=== PATIENT | female | born 2000 | race Two or more races ===

== ENCOUNTER 2025-02-16 02:17 | Inpatient (IN) | payer OTHER ==
[~2025-02-16] VITALS: Ht 170.2 cm; Wt 86.0 kg
[2025-02-16 02:55] VITALS: PULSE 83; RESP 20; O2SAT 99
[2025-02-16 03:25] LABS: Hematocrit 25.7 % (36.0-46.0); Hemoglobin 8.2 g/dL (12.2-16.2)
--- NOTE | 2025-02-16 03:36 | ED.PDOC ---
History of Present Illness HPI Comments 24 y/o F is BIBA for c/c of GI bleed. Patient is a transfer from [facility] for mzyrnm-ihsdb-ac-care admission after being found anemic with a Hgb of 5.8 and a Hct of 20.3 when evaluated for 1.5-2x week history of shortness of breath, lightheadedness, weakness, and syncope. She was given 2 units of PRBC's at other hospital facility prior to arrival. Patient states on being diagnosed with hemorrhoids during a previous ED visit in May 2024 but never following up with outpatient care for treatment and has been bleeding whenever using the bathroom. At time of assessment, patient reports initial symptoms for other hospital visit resolving following transfusions. Denies any further acute symptoms. REVIEW OF SYSTEMS: General: No fever, no chills, or fatigue HEENT: No sore throat, no earache, no congestion, no neck pain. Cardiac: No chest pain. No palpitations. Lungs: No shortness of breath, no cough. GI: Rectal bleeding. No nausea, no vomiting, no diarrhea, no constipation, no abdominal pain : No dysuria, frequency, or urgency. No hematuria. Musculoskeletal: No joint pain , no joint swelling, no extremity edema. Skin: No rash, no itching. Neuro: No headache, no dizziness, no weakness PHYSICAL EXAM: General: Awake, alert and oriented. No acute distress. Skin: Skin in warm, dry and intact without rashes or lesions. HEENT: The head is normocephalic and atraumatic. Conjunctivae are clear without exudates or hemorrhage. Sclera is non-icteric. Neck: Normal range of motion. No JVD. Cardiac: Regular rate Respiratory: No signs of respiratory distress. No Stridor. Extremities: Upper and lower extremities are atraumatic in appearance without deformity. Neurological: The patient is awake, alert and oriented to person, place, and time with normal speech. Speech is clear. There is no facial asymmetry. Psychiatric: Appropriate mood and affect. Good judgement and insight. Chief Complaint: GI Bleed Time Seen by MD: 03:00 Reviewed Notes: Nurses Notes, Medications, Allergies Allergies: Coded Allergies: Sulfamethoxazole w/Trimethoprim (Verified Allergy, Unknown, 02/16/25) Information Source: Patient, Transfer Record, Emergency Med Personnel Mode of Arrival: EMS Severity: Moderate Timing: Days Duration: Since onset Prehospital treatment: None Past Medical History Past Medical History (Other): Hemorrhoids Surgical History: Denies all surgeries [employer] History: Ovarian Cysts (PCOS) Was a procedure done? Was a procedure done?: No EKG EKG : Pulse Rate (adult): 75 Cardiac Rhythm: NSR Block: None Hypertrophy: None ST: Normal Comments No ST changes, no STEMI Differential Dx Considerations may include: Differential diagnoses considered includebut arenot limited to acute Bronchitis, Asthma, COPD, Pneumothorax, PE, CHF, Pulmonary HTN, Anemia, CO Poisoning, Methemoglobinemia, Hyperventilation, Metabolic Acidosis, Pulmonary Edema, Pneumonia, ACS, Pericardial Tamponade, Anxiety, anemia, lower GI bleed, hemorrhoids, other X-Ray, Labs, Meds, VS Vital Signs Date Time Temp Pulse Resp B/P (MAP) Pulse Ox O2 Delivery O2 Flow Rate FiO2 02/16/25 04:00 86 22 113/70 (84) 100 02/16/25 04:00 67 02/16/25 03:36 75 02/16/25 02:55 83 20 99 Room Air* 0 21 02/16/25 02:54 98.1 83 20 122/80 (94) 99 98.1 02/16/25 02:44 97.9 84 18 125/66 98 97.9 02/16/25 02:21 75 Lab Test 02/16/25 02:54 Range/Units Hemoglobin 8.2 L 12.2-16.2 g/dL Hematocrit 25.7 L 36.0-46.0 % Prothrombin Time 10.7 9.3-11.8 sec Prothrombin Time INR 1.01 0.9-1.15 Activated Partial Thromboplast Time 23.7 L 24.5-34.5 SEC Sodium Level 142 136-145 mmol/L Potassium Level 3.4 L 3.5-5.1 mmol/L Chloride Level 105 98-107 mmol/L Carbon Dioxide Level 25 20-31 mmol/L Anion Gap 12 5-15 Blood Urea Nitrogen 13 9-23 mg/dL Creatinine 0.67 0.550-1.02 mg/dL Glomerular Filtration Rate Calc 125 >90 mL/min BUN/Creatinine Ratio 19.4 10.0-20.0 Serum Glucose 101 74-106 mg/dL Calcium Level 9.3 8.7-10.4 mg/dL Total Bilirubin 0.6 0.2-1.0 mg/dL Aspartate Amino Transferase (AST) 16 13-40 U/L Alanine Aminotransferase (ALT) 18 7-40 U/L Alkaline Phosphatase 75 46-116 U/L Total Protein 7.2 5.7-8.2 g/dL Albumin 4.4 3.2-4.8 g/dL Time of 1ST Reevaluation: 03:30 Reevaluation 1ST: Unchanged Patient Education/Counseling: Other (Patient is a minor) Family Education/Counseling: Treatment, Need For Follow Up SEPSIS Sepsis Screen Date sepsis recognized/suspect: Feb 16, 2025 Time Sepsis recognized/suspect: 249 Recent Procedure: No On Antibiotic Therapy: No Respiratory Rate >20: No Heart Rate >90: No Temp<36 C (96.8 F) or >38.3 C: No SBP <90 or MAP <65 mmHG: No New Acute Mental Status Change: No Is the patient on CPAP, BIPAP,: No Physician Orders Dogger (02/16/25 ) Vital Signs Date Time Temp Pulse Resp B/P (MAP) Pulse Ox O2 Delivery O2 Flow Rate FiO2 02/16/25 04:00 86 22 113/70 (84) 100 02/16/25 04:00 67 02/16/25 03:36 75 02/16/25 02:55 83 20 99 Room Air* 0 21 02/16/25 02:54 98.1 83 20 122/80 (94) 99 98.1 02/16/25 02:44 97.9 84 18 125/66 98 97.9 02/16/25 02:21 75 Departure 1 Departure Time of Disposition: 03:45 Impression: Primary Impression: BRBPR (bright red blood per rectum) Additional Impression: Anemia Disposition: ADMITTED INPATIENT Condition: Stable Comments MDM: Patient admitted to hospitalist service for further treatment, evaluation and monitoring. Extensive evaluation was performed in attempt to identify or rule out: (See differential diagnosis section) The following tests were ordered, and results were reviewed by me and discussed with patient: (See diagnostic results section) The following test were independently interpreted by me: N/A I reviewed and agreed with the following test results read by other providers: N/A I reviewed the following notes from the pt's past medical encounters: N/A Additional information was gathered from interviewing the following independent historians: EMS personnel, medical transfer record. Discussion of management or test interpretation with external physician/other qualified health student career development specialist: N/A Decision regarding hospitalization or escalation of hospital level of care: Risk and benefits of admission for further treatment of patient's condition was considered. Due to patient's current clinical condition, high risk of decline and poor outcome if discharged and need for further inpatient management and monitoring, patient will be admitted to the hospital. Critical Care Note Critical Care Time?: No Stability Stability form required: No Heart Score Heart Score: Heart Score Response (Comments) Value History N/A 0 EKG N/A 0 Age N/A 0 Risk Factors N/A 0 Troponin N/A 0 Total 0 I personally scribed for JAS SYKES MD ([email or web address]) on 02/16/25 at 03:36. Electronically submitted by Agapito Manriquez ([email or web address]). JAS SYKES MD Feb 16, 2025 03:36
--- NOTE | 2025-02-16 04:11 | ECG ---
[facility] Test Date: 2025-02-16 Test Time: 02:21:07 Pat Name: KIANA TODD Department: [facility] ED Patient ID: [id number] Room: Gender: F Director Of Trauma: vitaliy : 2000 Requested By: JAS SYKES Order Number: [id number] Reading MD: Measurements Intervals [place] Rate: 75 P: 36 KS: 180 QRS: 38 QRSD: 74 T: 53 QT: 352 QTc: 394 Interpretive Statements Sinus rhythm Low voltage, precordial leads ST elev, probable normal early repol pattern Please click the below link to view image of tracing.
--- NOTE | 2025-02-16 04:26 | DVHHP2 ---
History of Present Illness Reason for Visit: Rectal bleed History of Present Illness 24-year-old female presents for evaluation of rectal bleeding. Patient being transferred from [facility] for evaluation of rectal bleeding. Patient endorses a two month history of rectal bleeding. She states over the past one- week she has become short of breath and unable to do simple tasks without becoming severely winded. Also reports occasional palpitations. Patient was noted to have a hemoglobin of 5.8 and transfuse 2 units of packed red cells prior to transfer. Past Medical History Hemorrhoids Past Surgical History Denies Family History Noncontributory Smoke: No ALCOHOL: none Drugs: None Review of Systems Review of Systems Review of systems are currently negative otherwise addressed in HPI. Allergies: Coded Allergies: Sulfamethoxazole w/Trimethoprim (Verified Allergy, Unknown, 02/16/25) Exam Vital Signs Vital Signs Date Time Temp Pulse Resp B/P (MAP) Pulse Ox O2 Delivery O2 Flow Rate FiO2 02/16/25 04:00 67 02/16/25 02:55 20 99 Room Air* 0 21 02/16/25 02:54 98.1 122/80 (94) 98.1 Exam Gen: 24-year-old female in mild Skin: Warm, dry, normal color and texture, no rash. HEENT: Normocephalic atraumatic, mucous membranes moist and pink. Neck: Cervical and supraclavicular nodes normal without enlargement, trachea is midline, thyroid gland is normal without masses. Pulmonary: Clear to auscultation and percussion bilaterally. Cardiac: Regular rate and rhythm. No murmur Abdomen: Soft, nontender, nondistended, bowel sounds present all 4 quadrants, no guarding, no rigidity, no organomegaly. Extremities: No cyanosis, clubbing, no edema Neuro: Cranial nerves II through XII grossly intact, normal affect and speech, no focal motor deficits. Labs/Xrays Labs Test 02/16/25 02:54 Range/Units Hemoglobin 8.2 L 12.2-16.2 g/dL Hematocrit 25.7 L 36.0-46.0 % SEPSIS Sepsis Screen Date sepsis recognized/suspect: Feb 16, 2025 Time Sepsis recognized/suspect: 249 Recent Procedure: No On Antibiotic Therapy: No Respiratory Rate >20: No Heart Rate >90: No Temp<36 C (96.8 F) or >38.3 C: No SBP <90 or MAP <65 mmHG: No New Acute Mental Status Change: No Is the patient on CPAP, BIPAP,: No Physician Orders Stool Occult Blood (02/16/25 02:46) Ethanol Maintenance Mechanic (02/16/25 ) Complete Blood Count (02/16/25 04:20) Comprehensive Metabolic Panel (02/16/25 04:20) PTPTT (02/16/25 04:20) * Gi Dvh Lock Corner Machine Operator (02/16/25 04:20) Pantoprazole (Protonix) (02/16/25 10:00) NS (02/16/25 04:30) Vital Signs Date Time Temp Pulse Resp B/P (MAP) Pulse Ox O2 Delivery O2 Flow Rate FiO2 02/16/25 04:00 67 02/16/25 03:36 75 02/16/25 02:55 83 20 99 Room Air* 0 21 02/16/25 02:54 98.1 83 20 122/80 (94) 99 98.1 02/16/25 02:44 97.9 84 18 125/66 98 97.9 02/16/25 02:21 75 Assessment/Plan Assessment/Plan Assessment Rectal bleeding History of hemorrhoids Symptomatic anemia Plan Admit the patient to [facility] to the hospitalist GI consultation NPO Maintenance IV fluids Protonix Continue treatment per orders. Plan discussed with: Patient My Orders Orders - JAMEEL MARTINEZ Procedure Category Date Status Time Complete Blood Count LAB 02/16/25 Verified 04:20 Comprehensive LAB 02/16/25 Verified Metabolic Panel 04:20 PTPTT LAB 02/16/25 Verified 04:20 * Gi Dvh Lock Corner Machine Operator CONS 02/16/25 Verified 04:20 Pantoprazole PHA 02/16/25 Verified (Protonix) 10:00 NS PHA 02/16/25 Verified 04:30 Date of Service: Feb 16, 2025 Billing Provider: JAMEEL MARTINEZ Common Visit Codes: [id number] INP/OBS CARE (HIGH) JAMEEL MARTINEZ Feb 16, 2025 04:26
[2025-02-16] MEDS ORDERED: ONDANSETRON HCL 4 MG/2 ML VIAL IV PRN (04:30)
[2025-02-16] MEDS: SODIUM CHLORIDE 0.9% 1,000 ML IV ONE (04:43)
[2025-02-16 04:50] LABS: Alanine Aminotransferase 18 U/L (7-40); Albumin 4.4 g/dL (3.2-4.8); Alkaline Phosphatase 75 U/L (46-116); Anion Gap 12 (5-15); BUN/Creatinine Ratio 19.4 (10.0-20.0); Blood Urea Nitrogen 13 mg/dL (9-23); Calcium 9.3 mg/dL (8.7-10.4); Carbon Dioxide 25 mmol/L (20-31); Chloride 105 mmol/L (98-107); Glucose 101 mg/dL (74-106); Sodium 142 mmol/L (136-145); Total Protein 7.2 g/dL (5.7-8.2)
[2025-02-16 04:51] LABS: Bilirubin, Total 0.6 mg/dL (0.2-1.0)
[2025-02-16 04:55] LABS: Potassium 3.4 mmol/L (3.5-5.1)
[2025-02-16 05:01] LABS: INR 1.01 (0.9-1.15); Partial Thromboplastin Time 23.7 SEC (24.5-34.5); Prothrombin Time 10.7 sec (9.3-11.8)
[2025-02-16 05:09] LABS: Hematocrit 26.0 % (36.0-46.0); Hemoglobin 8.2 g/dL (12.2-16.2); Mean Corpuscular Hemoglobin 22.8 pg (28.0-32.0); Mean Corpuscular Volume 72.4 fL (80.0-100.0); Nucleated Red Blood Cells % 0.0 %
[2025-02-16 08:00] VITALS: TEMP 98
[2025-02-16] MEDS: PANTOPRAZOLE 40 MG/10 ML VIAL INJ IV SCH (11:00)
--- NOTE | 2025-02-16 12:19 | DVHDS2 ---
Discharge Summary Date of Admission Feb 16, 2025 at 04:20 Date of Discharge: Feb 16, 2025 Labs/Diagnostic Data: Laboratory Results Test 02/16/25 04:41 02/16/25 02:54 White Blood Count 9.9 10^3/uL (4.4-10.8) Red Blood Count 3.59 10^6/uL (4.0-5.20) Hemoglobin 8.2 g/dL (12.2-16.2) Hematocrit 26.0 % (36.0-46.0) Mean Corpuscular Volume 72.4 fL (80.0-100.0) Mean Corpuscular Hemoglobin 22.8 pg (28.0-32.0) Mean Corpuscular Hemoglobin Concent 31.5 g/dL (32.0-36.0) Red Cell Distribution Width 19.0 % (11.8-14.3) Platelet Count 587 10^3/uL (140-450) Mean Platelet Volume 7.1 fL (6.9-10.8) Neutrophils (%) (Auto) 55.7 % (37.0-80.0) Lymphocytes (%) (Auto) 30.8 % (10.0-50.0) Monocytes (%) (Auto) 11.4 % (0.0-12.0) Eosinophils (%) (Auto) 1.2 % (0.0-7.0) Basophils (%) (Auto) 0.9 % (0.0-2.0) Neutrophils # (Auto) 5.5 10 ^3/uL (1.6-8.6) Lymphocytes # (Auto) 3.0 10 ^3/uL (0.4-5.4) Monocytes # (Auto) 1.1 10 ^3/uL (0-1.3) Eosinophils # (Auto) 0.1 10 ^3/uL (0-0.8) Basophils # (Auto) 0.1 10 ^3/uL (0-0.2) Nucleated Red Blood Cells 0.0 % Prothrombin Time 10.7 sec (9.3-11.8) Prothrombin Time INR 1.01 (0.9-1.15) Activated Partial Thromboplast Time 23.7 SEC (24.5-34.5) Sodium Level 142 mmol/L (136-145) Potassium Level 3.4 mmol/L (3.5-5.1) Chloride Level 105 mmol/L (98-107) Carbon Dioxide Level 25 mmol/L (20-31) Anion Gap 12 (5-15) Blood Urea Nitrogen 13 mg/dL (9-23) Creatinine 0.67 mg/dL (0.550-1.02) Glomerular Filtration Rate Calc 125 mL/min (>90) BUN/Creatinine Ratio 19.4 (10.0-20.0) Serum Glucose 101 mg/dL (74-106) Calcium Level 9.3 mg/dL (8.7-10.4) Total Bilirubin 0.6 mg/dL (0.2-1.0) Aspartate Amino Transferase (AST) 16 U/L (13-40) Alanine Aminotransferase (ALT) 18 U/L (7-40) Alkaline Phosphatase 75 U/L (46-116) Total Protein 7.2 g/dL (5.7-8.2) Albumin 4.4 g/dL (3.2-4.8) Other Laboratory Tests 02/16/25 04:41 02/16/25 02:54 Brief Hx & Hospital Course: SEE DICTATED NOTE Condition at Discharge: Good Final Diagnosis/Problems List ANEMIA Discharge Disposition: Home Discharge Instruct/Medications Diet: Regular Activity: No Restrictions, As Tolerated Follow Up/Referral: [facility] Medications: SCRIPT IN CHART Discharge Statement: "Patient was advised to return to the ER or call 911 if any headaches, dizziness, shortness of breath, chest pain, abdominal pain, bleeding, fevers, or worsening of medical condition. Patient was counseled about treatment plan, medications, possible side effects, patientverbalized understanding. All questions were answered to the best of my ability. This discharge took greater then 30 minutes in planning, reviewing documentation, counseling the patient, and discussing with other team members." ASSESSMENT ASSESSMENT Assessment ANEMIA Date of Service: Feb 16, 2025 Billing Provider: JAMEEL MONDRAGON MD Common Visit Codes: [id number] DISCH DAY >30min JAMEEL MONDRAGON MD Feb 16, 2025 12:19
[2025-02-16 12:25] VITALS: BP 117/71; PULSE 86; RESP 19; O2SAT 100
[2025-02-16] MEDS: HYDROCORTISONE ACET 25 MG RECTAL SUPP PR ONE (12:30)
--- NOTE | 2025-02-16 12:56 | DVHDS ---
DATE OF DISCHARGE: 02/16/2025 HISTORY OF PRESENT ILLNESS: The patient is a 24-year-old lady who was transferred from [place] because of rectal bleeding and severe anemia. The patient had low hemoglobin and was transfused 2 units of blood. HOSPITAL COURSE: The patient's hemoglobin was 8.2 at the time of admission. The patient has had no further active bleeding. She now, however, wishes to be discharged because of a planned family meeting. The patient has been explained the risks and explained the need for colonoscopy. She, however, wishes to go home and will do outpatient followup. She will be discharged to be on Anusol suppository b.i.d. for seven days along with iron sulfate. She will follow up with her primary and GI clinic. FINAL DIAGNOSES: * Severe anemia status post transfusion. * Hemorrhoidal bleeding. * Obesity. Time spent in discharge planning and review of plan with the patient and nursing was 38 minutes. MD JENIFER Herman/LINDY TID: [id number] RECEIPT: [id number]
[2025-02-16] MEDS: POTASSIUM CHL 20 Meq TABLET PO ONE (12:59)
== END 2025-02-16 13:07 | disposition home or self-care (01) | DRG 812 ==
LOC: EDBD 02:17 → ER 02:17 → EDSEX 02:17 → OVERFLOW 04:20
PROVIDERS: ADMIT Internal Medicine; ATTEND Internal Medicine
DX: D64.9 Anemia, unspecified (principal); K64.9 Unspecified hemorrhoids; E66.9 Obesity, unspecified; Z88.3 Allergy status to other anti-infective agents; Z68.29 Body mass index [BMI] 29.0-29.9, adult; Z79.899 Other long term (current) drug therapy
CPT/HCPCS: 36415; 80053; 85014; 85018; 85025; 85610; 85730; 86850; 86900; 86901; 93005; G0378; J2470